=== PATIENT | female | born 1935 | race Caucasian/White ===

== ENCOUNTER 2016-12-02 12:57 | Emergency (ER) | payer MEDICARE ==
--- NOTE | 2016-12-02 13:30 | ER Document Report ---
ED Medical Screen (RME) - General Chief Complaint: Head Injury without LOC Stated Complaint: FALL/HEAD INJURY Time Seen by Provider: 12/02/16 13:29 Notes: Patient fell several days ago and at the left corner of her head on a sharp metal object. She states initially she had just left-sided headache but now she has diffuse headache. She is also been dizzy. He has had no vomiting. She states she has a CT scan scheduled for the of this month by her doctor but her doctor informed her to come to the ER today if the dizziness and pain were worse. TRAVEL OUTSIDE OF THE [place] IN LAST 30 DAYS: No - Related Data Allergies/Adverse Reactions: fentanyl Allergy (Verified 12/02/16 13:26) fluconazole [From Diflucan] Allergy (Verified 12/02/16 13:26) Hives mirabegron [From Myrbetriq] Allergy (Verified 12/02/16 13:26) Swelling of tongue morphine [From Avinza] Allergy (Verified 12/02/16 13:26) oxcarbazepine [From Trileptal] Allergy (Verified 12/02/16 13:26) simvastatin [From Zocor] Allergy (Verified 12/02/16 13:26) Uiupudq-Lzh-Dio Reductase Inhibitor Allergy (Verified 12/02/16 13:26) Sulfa (Sulfonamide Antibiotics) Allergy (Verified 12/02/16 13:26) Past Medical History Renal/ Medical History: Denies: Hx Peritoneal Dialysis Physical Exam - Vital signs Vitals: Temp Pulse Resp BP Pulse Ox 98.7 F 68 16 153/58 H 96 12/02/16 13:07 12/02/16 13:07 12/02/16 13:07 12/02/16 13:07 12/02/16 13:07 Course - Vital Signs Vital signs: Temp Pulse Resp BP Pulse Ox 98.7 F 68 16 153/58 H 96 12/02/16 13:07 12/02/16 13:07 12/02/16 13:07 12/02/16 13:07 12/02/16 13:07
--- NOTE | 2016-12-02 14:27 | RADIOLOGY REPORT (SQ) ---
EXAM DESCRIPTION: CT HEAD WITHOUT COMPLETED DATE/TIME: 12/02/2016 2:09 pm REASON FOR STUDY: fall/ dizzy COMPARISON: None. TECHNIQUE: Axial images acquired through the brain without intravenous contrast. Images reviewed wi th bone, brain and subdural windows. Images stored on PACS. All CT scanners at this facility use dose modulation, iterative reconstruction, and/or weight based d osing when appropriate to reduce radiation dose to as low as reasonably achievable (ALARA). [facility]: Dose Right [facility]: CareDose [facility]: Dose Right [facility]: Teradose 4D [facility]: [employer] RADIATION DOSE: Up-to-date CT equipment and radiation dose reduction techniques were employed. CTDIv ol: 63.6 mGy. DLP: 1163 mGy-cm. mGy. LIMITATIONS: None. FINDINGS: VENTRICLES: Normal size and contour. CEREBRUM: No masses. No hemorrhage. No midline shift. No evidence for acute infarction. Normal gra y/white matter differentiation. Bifrontal areas of low density in the white matter, from age-appropr iate small vessel disease. CEREBELLUM: No masses. No hemorrhage. No alteration of density. No evidence for acute infarction. EXTRAAXIAL SPACES: No fluid collections. No masses. ORBITS AND GLOBE: No intra- or extraconal masses. Normal contour of globe without masses. CALVARIUM: No fracture. PARANASAL SINUSES: No fluid or mucosal thickening. SOFT TISSUES: No mass or hematoma. OTHER: No other significant finding. IMPRESSION: ESSENTIALLY NORMAL BRAIN CT FOR AGE, WITHOUT CONTRAST. EVIDENCE OF ACUTE STROKE: NO. COMMENT: Quality ID # [id number]: Final reports with documentation of one or more dose reduction techniques (e.g., Automated exposure control, adjustment of the mA and/or kV according to patient size, use of iterative reconstruction technique) TECHNICAL DOCUMENTATION: JOB ID: [id number] [email or web address]- All Rights Reserved
[2016-12-02 14:38] LABS: ABSOLUTE EOSINOPHILS # (AUTO) 0.3 10^3/uL (0.0-0.6); ABSOLUTE LYMPHOCYTES (AUTO) 0.6 10^3/uL (0.5-4.7); ABSOLUTE MONOCYTES (AUTO) 0.4 10^3/uL (0.1-1.4); ABSOLUTE NEUT (AUTO) 4.6 10^3/uL (1.7-8.2); BASOPHILS % (AUTO) 0.8 % (0-2); EOSINOPHILS % (AUTO) 4.6 % (0-6); HEMATOCRIT 38.4 % (36.0-47.0); HEMOGLOBIN 13.2 g/dL (12.0-15.5); HGB HCT DIFFERENCE 1.2; LYMPHOCYTES % (AUTO) 10.9 % (13-45); MEAN CORPUSCULAR HEMOGLOBIN 30.9 pg (27.0-33.4); MEAN CORPUSCULAR HGB CONC 34.4 g/dL (32.0-36.0); MEAN CORPUSCULAR VOLUME 90 fl (80-97); MONOCYTES % (AUTO) 6.4 % (3-13); RED BLOOD COUNT 4.27 10^6/uL (3.72-5.28); RED CELL DISTRIBUTION WIDTH 14.5 % (11.5-14.0); SEGMENTED NEUTROPHILS % (AUTO) 77.3 % (42-78); WHITE BLOOD COUNT 5.9 10^3/uL (4.0-10.5)
[2016-12-02 14:47] LABS: APPEARANCE,URINE CLEAR; BILIRUBIN,URINE NEGATIVE (NEGATIVE); GLUCOSE, URINE NEGATIVE (NEGATIVE); KETONES,URINE NEGATIVE (NEGATIVE); LEUKOCYTE ESTERASE,URINE NEGATIVE (NEGATIVE); NITRITE,URINE NEGATIVE (NEGATIVE); PROTEIN,URINE NEGATIVE (NEGATIVE); URINE SPECIFIC GRAVITY 1.011; UROBILINOGEN,URINE NEGATIVE mg/dL (<2.0)
[2016-12-02 14:59] LABS: ALANINE AMINOTRANSFERASE 34 U/L (9-52); ALBUMIN 4.7 g/dL (3.5-5.0); ALKALINE PHOSPHATASE 46 U/L (38-126); ANION GAP 15 (5-19); ASPARTATE AMINO TRANSFERASE 30 U/L (14-36); BILIRUBIN,DIRECT 0.6 mg/dL (0.0-0.4); BILIRUBIN,TOTAL 2.1 mg/dL (0.2-1.3); BLOOD UREA NITROGEN 22 mg/dL (7-20); CALCIUM 9.9 mg/dL (8.4-10.2); CARBON DIOXIDE 25 mmol/L (22-30); CHLORIDE 102 mmol/L (98-107); CREATININE RESULT 1.18 mg/dL (0.52-1.25); GLUCOSE 93 mg/dL (75-110); POTASSIUM 4.5 mmol/L (3.6-5.0); SODIUM 141.5 mmol/L (137-145)
--- NOTE | 2016-12-02 15:25 | ER Document Report ---
ED Head/Face/Scalp Injury - General Chief Complaint: Head Injury without LOC Stated Complaint: FALL/HEAD INJURY Time Seen by Provider: 12/02/16 13:29 Notes: Patient says that she fell on the of this month, about 5 days ago, and hit the left posterior aspect of her head on a sharp corner of a piece of furniture. She did not have a loss of consciousness. She has been experiencing headache, dizziness, imbalance problems ever since this occurred. She does have a long-standing diagnosis of vertigo and has balance problems from that condition. She is on Antivert for that condition. Her headache is now all over her entire head. She has some skin tears, in particular the right forearm. Denies any nausea or vomiting. Patient saw her primary care provider who has ordered outpatient CT scan of her head and ultrasound of her carotid arteries, but they have not been done yet. Patient denies any chest pains or irregular heart rate. Denies any difficulty breathing or shortness of breath. Has not been febrile. 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 She has a pacemaker. TRAVEL OUTSIDE OF THE [place] IN LAST 30 DAYS: No - Related Data Allergies/Adverse Reactions: fentanyl Allergy (Verified 12/02/16 13:26) fluconazole [From Diflucan] Allergy (Verified 12/02/16 13:26) Hives mirabegron [From Myrbetriq] Allergy (Verified 12/02/16 13:26) Swelling of tongue morphine [From Avinza] Allergy (Verified 12/02/16 13:26) oxcarbazepine [From Trileptal] Allergy (Verified 12/02/16 13:26) simvastatin [From Zocor] Allergy (Verified 12/02/16 13:26) Sjijbli-Pwe-Wzu Reductase Inhibitor Allergy (Verified 12/02/16 13:26) Sulfa (Sulfonamide Antibiotics) Allergy (Verified 12/02/16 13:26) Past Medical History - Social History Smoking Status: Never Smoker Chew tobacco use (# tins/day): No Frequency of alcohol use: None Drug Abuse: None Family History: Reviewed & Not Pertinent Patient has suicidal ideation: No Patient has homicidal ideation: No - Past Medical History Cardiac Medical History: Reports: Hx Hypercholesterolemia, Hx Hypertension, Other - Has a pacemaker. Surgery for replacing aortic valve with a cow valve twice Denies: Hx Atrial Fibrillation Neurological Medical History: Reports: Other - Vertigo on Antivert. Endocrine Medical History: Reports: Hx Diabetes Mellitus Type 2 Past Surgical History: Reports: Other - Replacement of aortic valve twice Review of Systems - Review of Systems Notes: REVIEW OF SYSTEMS: CONSTITUTIONAL : Denies fever. EENT: Denies eye, ear, nose or mouth or throat pain or other symptoms. CARDIOVASCULAR: Denies chest pain. RESPIRATORY: Denies cough, chest congestion, or shortness of breath. GASTROINTESTINAL: Denies abdominal pain or nausea, vomiting, or diarrhea. GENITOURINARY: Denies difficulty or painful urinating, urinary frequency, blood in urine. MUSCULOSKELETAL: Denies back or neck pain. Denies joint pain or swelling. SKIN: Denies rash or skin lesions, except for a skin tear of the right wrist. NEUROLOGICAL: Denies LOC or altered mental status. Denies sensory loss or motor deficits. See HPI. ALL OTHER SYSTEMS REVIEWED AND NEGATIVE. Physical Exam - Vital signs Vitals: Temp Pulse Resp BP Pulse Ox 98.7 F 68 16 153/58 H 96 12/02/16 13:07 12/02/16 13:07 12/02/16 13:07 12/02/16 13:07 12/02/16 13:07 Interpretation: Normal - Notes Notes: PHYSICAL EXAMINATION: GENERAL: Well-appearing, in no acute distress. HEAD: Atraumatic, normocephalic. EYES: Pupils equal round and reactive to light, extraocular movements intact. No nystagmus present. ENT: oropharynx clear without exudates. Moist mucous membranes. NECK: Normal range of motion, supple. No carotid bruits heard. Palpated good and symmetric carotid artery pulsations. LUNGS: Breath sounds clear and equal bilaterally. HEART: Regular rate and rhythm without murmurs heard by me. ABDOMEN: Soft, nontender. No guarding or rebound. BACK: No tenderness throughout entire back. EXTREMITIES: Normal range of motion without pain. NEUROLOGICAL: Normal speech, normal gait, although slightly unsteady on her feet. Normal sensory, motor, and reflex exams. Awake, alert, and oriented x3. Cranial nerves normal. No nystagmus. PSYCH: Normal mood, normal affect. SKIN: Warm, dry, no rashes. Course - Vital Signs Vital signs: Temp Pulse Resp BP Pulse Ox 98.0 F 62 17 145/56 H 96 12/02/16 15:43 12/02/16 15:43 12/02/16 15:43 12/02/16 15:43 12/02/16 15:43 - Laboratory Result Diagrams: 12/02/16 13:57 12/02/16 13:57 Laboratory results interpreted by me: 12/02/16 12/02/16 12/02/16 13:57 13:57 13:57 RDW 14.5 H Plt Count 120 L Lymphocytes % 10.9 L BUN 22 H Est GFR ( Amer) 53 L Est GFR (Non-Af Amer) 44 L Total Bilirubin 2.1 H Direct Bilirubin 0.6 H Urine Ascorbic Acid 40 H - Diagnostic Test Radiology reviewed: Image reviewed, Reports reviewed - CT of the brain is normal for her age. No acute findings. No stroke evident. Discharge - Discharge Clinical Impression: Head injury due to trauma, Vertigo, Headache Condition: Stable Disposition: HOME, SELF-CARE Additional Instructions: HEAD INJURY PRECAUTIONS: At this point, there is no evidence that your head injury is serious. Observation is necessary, however. Take only clear liquids for the first few hours, unless told otherwise by the doctor. If no pain medication was prescribed, you may take acetaminophen according to the directions on the bottle. Do not take any medication that may alter your level of alertness (unless you've discussed it with the doctor first) . Limit activity for the first 24 hours. Bed rest is best. During the first 24 hours, check to see approximately every two to three hours that the patient is easily arousable, responds normally, and can perform common tasks such as walking without difficulty. Contact your doctor or go to the hospital if any of the following things occur: Persistent vomiting, difficulty in arousing the patient, worsening or continued headache, or failure to improve as expected. Head injuries can cause symptoms that persist for a few days or even a few weeks. CONTUSION: Your injury has resulted in a contusion -- a crushing of the deep tissues. No injury to important structures was detected during the physician's exam. Contusions vary in the amount of pain they cause, and in the length of time required for healing. Typically, the area will become bruised, and will remain painful to touch for two or three weeks. However, most patients are back to working and playing within a few days. After the initial period of rest and cold-packs, your symptoms (together with the doctor's recommendations) will determine how rapidly you can get back to full activity. Usually this means "do what feels okay, but don't do things that hurt." If re-examination was recommended, it's important to follow up as instructed. Call the doctor or return any time if pain increases, if swelling becomes severe, if you develop numbness or weakness in an injured extremity, or if any other alarming symptoms occur. HEADACHE: The physician does not feel that the headache you are experiencing has a serious underlying cause. Most headaches are due to emotional stress, with resultant muscle tension (tension headache). Occasionally, headaches are secondary to changes in the blood vessels of the scalp (vascular headache and migraine headache). Sometimes, a headache is the first symptom of another developing illness, such as a viral infection. You have no evidence of stroke, bleeding, meningitis, or other serious cause of your headache. The treatment of headaches varies with the severity and cause of the pain. Not all headaches need pain shots. In fact, there is evidence that using narcotics for headaches may make them worse in the long run. The physician will determine the therapy that's in your best interest. If you develop a fever, if the headache is different from any you've previously experienced, or if the headache progressively worsens, then call your physician at once or go to the emergency room. USE OF ACETAMINOPHEN (Tylenol): Acetaminophen may be taken for pain relief or fever control. It's much safer than aspirin, offering a wider range of "safe" dosages. It is safe during . Some brand names are Tylenol, Panadol, Datril, Anacin 3, Tempra, and Liquiprin. Acetaminophen can be repeated every four hours. The following are maximum recommended dosages: WEIGHT Dose Drops Elixir Chewable( 80mg) (LBS.) drprs=droppers tsp=teaspoon >89 pounds or adults 650 mg to 900 mg Acetaminophen can be repeated every four hours. Maximum dose not to exceed 4000 mg a day. However, I would recommend you take the Tylenol no more than 3 times a day for a maximum dose a day of 3000 mg. These maximum recommended dosages are slightly higher than the dosages written on the product container, but these dosages are very safe and below the toxic dosage for acetaminophen. DIZZINESS: Under normal circumstances, your sense of balance is controlled by a number of signals that your brain receives from several locations: Eyes. No matter what your position, visual signals help you determine where your body is in space and how it's moving. Sensory nerves. These are in your skin, muscles and joints. Sensory nerves send messages to your brain about body movements and positions. Inner ear. The organ of balance in your inner ear is the vestibular labyrinth. It includes loop-shaped structures (semicircular canals) that contain fluid and fine, hair-like sensors that monitor the rotation of your head. Near the semicircular canals are the utricle and saccule, which contain tiny particles called otoconia ([id number]). These particles are attached to sensors that help detect gravity and cupy-ptk-vjiqp motion. Good balance depends on at least two of these three sensory systems working well. For instance, closing your eyes while washing your hair in the shower doesn't mean you'll lose your balance. Signals from your inner ear and sensory nerves help keep you upright. However, if your central nervous system can't process signals from all of these locations, if the messages are contradictory, or if the sensory systems aren't functioning properly, you may experience loss of balance. Dizziness may have a number of potential causes. These may include: Vertigo Vertigo - the false sense of motion or spinning - is the most common symptom of dizziness. Sitting up or moving around may make it worse. Sometimes vertigo is severe enough to cause nausea and vomiting. Vertigo usually results from a problem with the nerves and the structures of the balance mechanism in your inner ear (vestibular system), which sense movement and changes in your head position. Abnormal rhythmic eye movements ( nystagmus) almost always accompany vertigo. Causes of vertigo may include: Benign paroxysmal positional vertigo (BPPV). BPPV involves intense, brief episodes of vertigo associated with a change in the position of your head, often when you turn over in bed or sit up in the morning. It occurs when normal calcium carbonate crystals (otoconia) break loose and fall into the wrong part of the canals in your inner ear. When these particles shift, they stimulate sensors in your ear, producing an episode of vertigo. Doctors don't know what causes BPPV, but it may be a natural result of aging. Trauma to your head also may lead to BPPV. Inflammation in the inner ear. Signs and symptoms of inflammation of the inner ear (acute vestibular neuronitis or labyrinthitis) include sudden, intense vertigo that may persist for several days, with nausea and vomiting. It can be incapacitating, requiring bed rest to minimize the signs and symptoms. Fortunately, vestibular neuronitis generally subsides and clears up on its own. Recovery time may be shorter with vestibular rehabilitation exercises. Although the cause of this condition is unknown, it may be a viral infection. Meniere's disease. This disease involves the excessive buildup of fluid in your inner ear. It may affect adults at any age and is characterized by sudden episodes of vertigo lasting 30 minutes to an hour or longer. Other signs and symptoms include the feeling of fullness in your ear, buzzing or ringing in your ear (tinnitus), and fluctuating hearing loss. The cause of Meniere's disease is unknown. Vestibular migraine. People who experience a vestibular migraine are very sensitive to motion. Dizziness and vertigo caused by a vestibular migraine may be triggered by turning your head quickly, being in a crowded or confusing place , driving or riding in a vehicle, or even watching movement on TV. A vestibular migraine may cause feelings of imbalance or unsteadiness, hearing loss, "muffled " hearing, or ringing in your ears (tinnitus). For most people with a vestibular migraine, vertigo doesn't necessarily happen at the same time as the headache. Instead, typical migraine triggers may lead to vertigo without an actual migraine. Attacks of migrainous vertigo can last from a few minutes to several days. Acoustic neuroma. An acoustic neuroma (schwannoma) is a noncancerous (benign ) growth on the acoustic nerve, which connects the inner ear to your brain. Signs and symptoms of an acoustic neuroma may include dizziness, loss of balance , hearing loss and tinnitus. Rapid changes in motion. Riding on roller coasters or in boats, cars or even airplanes may on occasion make you dizzy. Other causes. Rarely, vertigo can be a symptom of a more serious neurological problem such as a stroke, brain hemorrhage or multiple sclerosis. Loss of balance (disequilibrium) Disequilibrium is the loss of balance or the feeling of unsteadiness when you walk. Causes may include: Inner ear (vestibular) problems. Abnormalities with your inner ear can cause you to feel like you are floating, have a heavy head or are unsteady in the dark. Sensory disorders. Failing vision and nerve damage in your legs (peripheral neuropathy) are common in older adultsand may result in difficulty maintaining your balance. Joint and muscle problems. Muscle weakness and osteoarthritis - the type of arthritis that involves wear and tear of your joints - can contribute to loss of balance when it involves your weight-bearing joints. Medications. Loss of balance can be a side effect of certain medications, such as anti-seizure drugs, sedatives and tranquilizers. Concussion You have suffered a concussion -- a temporary loss of certain brain functions due to a mild brain injury. The recovery is usually rapid and complete. The temporary problems occurring with a concussion can include loss of consciousness, dizziness, nausea, vomiting, and confusion. Repeat concussions can cause brain damage. In the future, avoid activities that will cause a blow to your head. Wear a helmet for sports such as snowboarding, biking, or skating. It's important that someone be with you for the first 24 hours. During this time, do not exercise or drive a vehicle. Do not take any pain medication stronger than acetaminophen unless prescribed by the physician. Any significant changes should be reported immediately to the physician. Signs of a problem may include: (1) Mental confusion (2) Incoordination or staggering (3) Repeated or forceful vomiting (4) Clear or bloody drainage from ear, mouth, or nose (5) Severe headache, not relieved by acetaminophen or prescribed pain medication (6) Failure to improve in 24 hours NORMAL EXAM AND WORKUP: At this time, your examination and workup show no significant abnormality. No significant abnormal physical findings were noted. All laboratory, EKG, and imaging (x-ray, CT scans, ultrasound) studies that were ordered show no significant abnormality. Although your examination and all studies that were ordered showed no significant abnormal finding, there are no examinations and no studies that are 100% accurate. There is always the possibility that some abnormality could exist and not be detected with physical examination or within the limits and capabilities of laboratory and other studies. You should return or follow up as you were instructed on your visit today for further evaluation if your symptoms do not resolve. MECLIZINE: You are to take meclizine (Antivert) for control of symptoms. This is a drug of the antihistamine family which is useful for controlling nausea, dizziness, and motion sickness. Meclizine is usually taken three times a day, as needed. It's more effective at preventing symptoms than at relieving severe symptoms once they occur. It can be taken BEFORE activities which are likely to cause dizziness or nausea. Common side effects of this medicine are drowsiness and dry mouth. You should use caution in driving or operating machinery while taking this medication. In particular, you should not drive long distances or drive at night while taking this medicine. Meclizine should not be combined with alcohol , narcotics, or sedative medications without consulting your physician. FOLLOW-UP CARE: If you have been referred to a physician for follow-up care, call the physician s office for an appointment as you were instructed or within the next two days. If you experience worsening or a significant change in your symptoms, notify the physician immediately or return to the Emergency Department at any time for re-evaluation. You should not be driving a motor vehicle so long as you are still having any of the symptoms you now have such as headache, dizziness, problems with balance , vision changes, etc. Go ahead and get the ultrasound of your carotid arteries done as scheduled. You do not need to repeat your CT scan as is scheduled. See your primary care provider, Dr. Wade for follow-up. Referrals: DIXIE ORONA MD [Primary Care Provider] - Follow up as needed
[2016-12-02 15:58] VITALS: BP 145/56
== END 2016-12-02 15:46 | disposition home or self-care (01) ==
LOC: ER 12:57
DX: S09.90XA Unspecified injury of head, initial encounter (principal); S51.811A Laceration without foreign body of right forearm, initial encounter; R42 Dizziness and giddiness; R51 Headache; W22.03XA Walked into furniture, initial encounter; E11.9 Type 2 diabetes mellitus without complications; I10 Essential (primary) hypertension; E78.00 Pure hypercholesterolemia, unspecified; Z88.6 Allergy status to analgesic agent; Z95.2 Presence of prosthetic heart valve; Z88.2 Allergy status to sulfonamides; Z95.0 Presence of cardiac pacemaker
CPT/HCPCS: 36415; 70450; 80053; 81001; 85025; 99284

== ENCOUNTER 2017-03-01 20:27 | Emergency (ER) | payer MEDICARE ==
[2017-03-01 20:56] VITALS: BP 139/67
--- NOTE | 2017-03-01 23:56 | ER Document Report ---
ED Medical Screen (RME) - General Chief Complaint: Back Injury Stated Complaint: FALL/BACK PAIN/RIB PAIN Time Seen by Provider: 03/01/17 23:54 Notes: 81-year-old female, chief complaint of falling this morning, states she landed on her lower back, reports sharp pain in the lower back, tried a lidocaine patch , pain continued. She feels like pain has worsened. She denies new incontinence or inability to urinate, denies new numbness. Denies head injury or any other areas of injury. TRAVEL OUTSIDE OF THE [place] IN LAST 30 DAYS: No - Related Data Allergies/Adverse Reactions: fentanyl Allergy (Verified 12/02/16 13:26) fluconazole [From Diflucan] Allergy (Verified 12/02/16 13:26) Hives mirabegron [From Myrbetriq] Allergy (Verified 12/02/16 13:26) Swelling of tongue morphine [From Avinza] Allergy (Verified 12/02/16 13:26) oxcarbazepine [From Trileptal] Allergy (Verified 12/02/16 13:26) simvastatin [From Zocor] Allergy (Verified 12/02/16 13:26) Fndepbp-Fdt-Tvs Reductase Inhibitor Allergy (Verified 12/02/16 13:26) Sulfa (Sulfonamide Antibiotics) Allergy (Verified 12/02/16 13:26) Past Medical History - Past Medical History Cardiac Medical History: Reports: Hx Hypercholesterolemia, Hx Hypertension Denies: Hx Atrial Fibrillation Endocrine Medical History: Reports: Hx Diabetes Mellitus Type 2 Renal/ Medical History: Denies: Hx Peritoneal Dialysis Past Surgical History: Reports: Other - Replacement of aortic valve twice - Immunizations History of Influenza Vaccine for 11/2016 - 04/2017 Season: Yes Physical Exam - Vital signs Vitals: Temp Pulse Resp BP Pulse Ox 98.1 F 72 14 139/67 H 95 03/01/17 20:55 03/01/17 20:55 03/01/17 20:55 03/01/17 20:55 03/01/17 20:55 - General General appearance: Appears well In distress: None - Back Back: Tender - Tender generally around the upper to mid lumbar spine, no traumatic findings, normal back exam otherwise, normal distal sensation, normal capillary refill Course - Vital Signs Vital signs: Temp Pulse Resp BP Pulse Ox 98.1 F 72 14 139/67 H 95 01/22/18 20:55 03/01/17 20:55 03/01/17 20:55 03/01/17 20:55 03/01/17 20:55
--- NOTE | 2017-03-02 00:53 | RADIOLOGY REPORT (SQ) ---
EXAM DESCRIPTION: CT LUMBAR SPINE WITHOUT CLINICAL HISTORY: fall, pain COMPARISON: None available TECHNIQUE: Axial CT of the lumbar spine obtained without contrast. FINDINGS: 5 nonrib-bearing lumbar vertebrae. 23 degrees levoconvex scoliosis of the thoracolumbar spine. Osteopenia. No cortical step-off identified. Vertebral body height appears preserved. Prior posterior laminectomies at L4 and L5. Prevertebral soft tissues are unremarkable. Multilevel moderate to severe loss of intervertebral disc height with endplate spondylosis and uncovertebral spurring. Multilevel moderate osseous neural foraminal narrowing. Facet arthropathy. Aortoiliac atherosclerosis. Postoperative changes of the visualized colon. Atrophy of the kidneys. DLP: 1728.06 mGy-cm IMPRESSION: 1. No acute fracture of the lumbar spine by CT criteria. Given degree of osteopenia, if the patient continues to have pain MRI may be helpful. 2. Severe multilevel degenerative change of the lumbar spine as well as 23 degrees levoconvex scoliosis. This exam was performed according to our departmental dose-optimization program, which includes automated exposure control, adjustment of the mA and/or kV according to patient size and/or use of iterative reconstruction technique.
[2017-03-02] MEDS ORDERED: HYDROCODONE/ACETAMINOPHEN 5-325 MG (6 TAB/ER DISP) PO PRN (01:54)
--- NOTE | 2017-03-02 01:56 | ER Document Report ---
ED Fall - General Chief Complaint: Back Injury Stated Complaint: FALL/BACK PAIN/RIB PAIN Time Seen by Provider: 03/01/17 23:54 Notes: 81-year-old female, chief complaint of falling this morning, states she landed on her lower back, reports sharp pain in the lower back, tried a lidocaine patch , pain continued. She feels like pain has worsened. She denies new incontinence or inability to urinate, denies new numbness. Denies head injury or any other areas of injury. TRAVEL OUTSIDE OF THE [place] IN LAST 30 DAYS: No - Related data Allergies/Adverse Reactions: fentanyl Allergy (Verified 12/02/16 13:26) fluconazole [From Diflucan] Allergy (Verified 12/02/16 13:26) Hives mirabegron [From Myrbetriq] Allergy (Verified 12/02/16 13:26) Swelling of tongue morphine [From Avinza] Allergy (Verified 12/02/16 13:26) oxcarbazepine [From Trileptal] Allergy (Verified 12/02/16 13:26) simvastatin [From Zocor] Allergy (Verified 12/02/16 13:26) Bdgeygy-Egm-Ypg Reductase Inhibitor Allergy (Verified 12/02/16 13:26) Sulfa (Sulfonamide Antibiotics) Allergy (Verified 12/02/16 13:26) Past Medical History - General Information source: Patient - Social History Smoking Status: Never Smoker Frequency of alcohol use: None Drug Abuse: None Lives with: Family Family History: Reviewed & Not Pertinent Patient has suicidal ideation: No Patient has homicidal ideation: No - Past Medical History Cardiac Medical History: Reports: Hx Hypercholesterolemia, Hx Hypertension Denies: Hx Atrial Fibrillation Endocrine Medical History: Reports: Hx Diabetes Mellitus Type 2 Renal/ Medical History: Denies: Hx Peritoneal Dialysis Past Surgical History: Reports: Other - Replacement of aortic valve twice Review of Systems - Review of Systems Constitutional: No symptoms reported EENT: No symptoms reported Cardiovascular: No symptoms reported Respiratory: No symptoms reported Gastrointestinal: No symptoms reported Genitourinary: No symptoms reported Female Genitourinary: No symptoms reported Musculoskeletal: See HPI Skin: No symptoms reported Hematologic/Lymphatic: No symptoms reported Neurological/Psychological: No symptoms reported Physical Exam - Vital signs Vitals: Temp Pulse Resp BP Pulse Ox 98.1 F 72 14 139/67 H 95 03/01/17 20:55 03/01/17 20:55 03/01/17 20:55 03/01/17 20:55 03/01/17 20:55 Interpretation: Normal - General General appearance: Appears well, Alert - HEENT Head: Normocephalic, Atraumatic Eyes: Normal Pupils: PERRL - Respiratory Respiratory status: No respiratory distress Chest status: Nontender Breath sounds: Normal Chest palpation: Normal - Cardiovascular Rhythm: Regular Heart sounds: Normal auscultation Murmur: No - Abdominal Inspection: Normal Distension: No distension Bowel sounds: Normal Tenderness: Nontender Organomegaly: No organomegaly - Back Back: Tender - Tender generally in the lumbar area both paraspinal and midline. No severe tenderness. Full range of motion of all extremities, no saddle anesthesia, no ecchymosis or signs of trauma over the back - Extremities General upper extremity: Normal inspection, Nontender, Normal color, Normal ROM , Normal temperature General lower extremity: Normal inspection, Nontender, Normal color, Normal ROM , Normal temperature, Normal weight bearing. No: Dante's sign - Neurological Neuro grossly intact: Yes Cognition: Normal Orientation: AAOx4 Oral Coma Scale Eye Opening: Spontaneous Yanci Coma Scale Verbal: Oriented Oral Coma Scale Motor: Obeys Commands Oral Coma Scale Total: 15 Speech: Normal Motor strength normal: LUE, RUE, LLE, RLE Sensory: Normal - Psychological Associated symptoms: Normal affect, Normal mood - Skin Skin Temperature: Warm Skin Moisture: Dry Skin Color: Normal Course - Re-evaluation Re-evalutation: Patient alert and well-appearing. She states that she came because she wants to get patches like her daughter as (lidocaine patches). CAT scan imaging of the lumbar spine shows no obvious acute abnormality. Multiple degenerative changes. No neurological deficits. No signs of trauma over her back. No distress. Discussed results with patient and daughter, discussed follow-up and return precautions, they state understanding and agreement. - Vital Signs Vital signs: Temp Pulse Resp BP Pulse Ox 98.1 F 72 14 139/67 H 95 03/01/17 20:55 03/01/17 20:55 03/01/17 20:55 03/01/17 20:55 03/01/17 20:55 Discharge - Discharge Clinical Impression: Fall Qualifiers: Encounter type: initial encounter Qualified Code(s): W19.XXXA - Unspecified fall, initial encounter Lower back pain Qualifiers: Chronicity: acute Back pain laterality: bilateral Sciatica presence: without sciatica Qualified Code(s): M54.5 - Low back pain Condition: Stable Disposition: HOME, SELF-CARE Additional Instructions: No fracture, dislocation, or new finding is seen on scan. You have degenerative breakdown, scoliosis, arthritis in your back.3 Use patches if needed, use provided medications tonight if needed, take over-the -counter MiraLAX to avoid constipation. Follow-up with primary care for additional management. Return for any concerning or worsening symptoms including new numbness, inability to control your bowels or bladder more than usual, severe pain, or any other concerning symptoms. Prescriptions: Lidocaine [Lidoderm 5% (700 mg) Transdermal Patch] 1 patch TP DAILY #30 adh..patch Referrals: DIXIE ORONA MD [Primary Care Provider] - Follow up as needed
== END 2017-03-02 01:40 | disposition home or self-care (01) ==
LOC: ER 20:27
DX: M54.5 Low back pain (principal); W19.XXXA Unspecified fall, initial encounter; Y93.89 Activity, other specified; M47.9 Spondylosis, unspecified; I10 Essential (primary) hypertension; E11.9 Type 2 diabetes mellitus without complications; Z88.5 Allergy status to narcotic agent; Z88.3 Allergy status to other anti-infective agents; Z88.2 Allergy status to sulfonamides; Z88.8 Allergy status to other drugs, medicaments and biological substances; Z95.2 Presence of prosthetic heart valve
CPT/HCPCS: 99283; 72131; A9270

== ENCOUNTER → 2017-04-01 | Outpatient (CLI) | payer MEDICARE ==
--- NOTE | 2017-04-01 18:42 | RADIOLOGY REPORT (SQ) ---
EXAM DESCRIPTION: CT HEAD WITHOUT COMPLETED DATE/TIME: 04/01/2017 6:27 pm REASON FOR STUDY: Unspecified injury of head, initial encounter, Dizziness and giddiness S09.90XA U NSPECIFIED INJURY OF HEAD, INITIAL ENCOUNTER COMPARISON: 12/02/2016. TECHNIQUE: Axial images acquired through the brain without intravenous contrast. Images reviewed wi th bone, brain and subdural windows. Images stored on PACS. All CT scanners at this facility use dose modulation, iterative reconstruction, and/or weight based d osing when appropriate to reduce radiation dose to as low as reasonably achievable (ALARA). [facility]: Dose Right [facility]: CareDose [facility]: Dose Right [facility]: Teradose 4D [facility]: [employer] RADIATION DOSE: CT Rad equipment meets quality standard of care and radiation dose reduction techniq ues were employed. CTDIvol: 62.3 mGy. DLP: 1163 mGy-cm. mGy. LIMITATIONS: None. FINDINGS: VENTRICLES: Prominent. CEREBRUM: No masses. No hemorrhage. No midline shift. Areas of low density in the white matter mos t likely due to chronic micro-vascular ischemic change. No evidence for acute infarction. CEREBELLUM: No masses. No hemorrhage. No alteration of density. No evidence for acute infarction. EXTRAAXIAL SPACES: Mild age-related involutional change. No fluid collections. No masses. ORBITS AND GLOBE: No intra- or extraconal masses. Normal contour of globe without masses. CALVARIUM: No fracture. PARANASAL SINUSES: No fluid or mucosal thickening. SOFT TISSUES: No mass or hematoma. OTHER: No other significant finding. IMPRESSION: MILD CHRONIC CHANGES OF ATROPHY AND MICROVASCULAR ISCHEMIA. NO ACUTE PROCESS. EVIDENCE OF ACUTE STROKE: NO. TECHNICAL DOCUMENTATION: JOB ID: [id number] Quality ID # [id number]: Final reports with documentation of one or more dose reduction techniques (e.g., Au tomated exposure control, adjustment of the mA and/or kV according to patient size, use of iterative reconstruction technique) 2010 [employer]- All Rights Reserved
== END ==
LOC: RAD 17:45
PROVIDERS: ATTEND Internal Medicine
DX: S09.90XA Unspecified injury of head, initial encounter (principal); X58.XXXA Exposure to other specified factors, initial encounter; Y93.9 Activity, unspecified; Y92.9 Unspecified place or not applicable; Y99.9 Unspecified external cause status; R42 Dizziness and giddiness
CPT/HCPCS: 70450

== ENCOUNTER 2018-05-28 12:39 | Emergency (ER) | payer MEDICARE ==
--- NOTE | 2018-05-28 13:32 | ER Document Report ---
ED Medical Screen (RME) - General Chief Complaint: Breathing Difficulty Stated Complaint: DIFFICULTY BREATHING Time Seen by Provider: 05/28/18 13:28 Primary Care Provider: DIXIE ORONA MD [Primary Care Provider] - Follow up as needed Mode of Arrival: Ambulatory Information source: Patient, Relative Notes: 82-year-old female presented to ED complaint of severe pain when breathing bilateral lower ribs and upper abdomen. She also has bilateral flank pain. She states she has had this pain since Wednesday. She states is not getting any better. She states she does have a history of pleural effusion A. fib aortic valve repair colon resection due to an abscess that was wrapped around the left ovary and tube and she had a left ovary and tube removed. She is here with her daughter. She states the pain feels almost like when she had the pleural effusion before. She states she does occasionally drink but does not smoke or use any kind of drugs. She lives with her daughter. Patient does have bilateral lower rib and flank tenderness. Tenderness goes all the way down to bilateral groin I have greeted and performed a rapid initial assessment of this patient. A comprehensive ED assessment and evaluation of the patient, analysis of test results and completion of medical decision making process will be conducted by an additional ED providers. TRAVEL OUTSIDE OF THE [place] IN LAST 30 DAYS: No - Related Data Allergies/Adverse Reactions: fentanyl Allergy (Verified 12/02/16 13:26) fluconazole [From Diflucan] Allergy (Verified 12/02/16 13:26) Hives mirabegron [From Myrbetriq] Allergy (Verified 12/02/16 13:26) Swelling of tongue morphine [From Avinza] Allergy (Verified 12/02/16 13:26) oxcarbazepine [From Trileptal] Allergy (Verified 12/02/16 13:26) simvastatin [From Zocor] Allergy (Verified 12/02/16 13:26) Dopqzqe-Fok-Gok Reductase Inhibitor Allergy (Verified 12/02/16 13:26) Sulfa (Sulfonamide Antibiotics) Allergy (Verified 12/02/16 13:26) Past Medical History - Past Medical History Cardiac Medical History: Reports: Hx Hypercholesterolemia, Hx Hypertension Denies: Hx Atrial Fibrillation Endocrine Medical History: Reports: Hx Diabetes Mellitus Type 2 Renal/ Medical History: Denies: Hx Peritoneal Dialysis Past Surgical History: Reports: Other - Replacement of aortic valve twice - Immunizations History of Influenza Vaccine for 11/2016 - 04/2017 Season: Yes Physical Exam - Vital signs Vitals: Temp Pulse Resp BP Pulse Ox 97.8 F 60 22 H 132/64 H 97 05/28/18 12:53 05/28/18 12:53 05/28/18 12:53 05/28/18 12:53 05/28/18 12:53 Course - Vital Signs Vital signs: Temp Pulse Resp BP Pulse Ox 97.8 F 60 22 H 132/64 H 97 05/28/18 12:53 05/28/18 12:53 05/28/18 12:53 05/28/18 12:53 05/28/18 12:53 Doctor's Discharge - Discharge Referrals: DIXIE ORONA MD [Primary Care Provider] - Follow up as needed
[2018-05-28 14:14] LABS: APPEARANCE,URINE SLIGHTLY-CLOUDY; BILIRUBIN,URINE NEGATIVE (NEGATIVE); COLOR,URINE YELLOW; GLUCOSE, URINE NEGATIVE (NEGATIVE); KETONES,URINE NEGATIVE (NEGATIVE); LEUKOCYTE ESTERASE,URINE NEGATIVE (NEGATIVE); NITRITE,URINE NEGATIVE (NEGATIVE); PROTEIN,URINE NEGATIVE (NEGATIVE); URINE SPECIFIC GRAVITY 1.014; UROBILINOGEN,URINE NEGATIVE mg/dL (<2.0)
--- NOTE | 2018-05-28 14:22 | RADIOLOGY REPORT (SQ) ---
EXAM DESCRIPTION: CHEST 2 VIEWS COMPLETED DATE/TIME: 05/28/2018 2:10 pm REASON FOR STUDY: lower chest pain bilateral hx plueral effusion COMPARISON: None EXAM PARAMETERS: NUMBER OF VIEWS: two views TECHNIQUE: Digital Frontal and Lateral radiographic views of the chest acquired. RADIATION DOSE: NA LIMITATIONS: none FINDINGS: LUNGS AND PLEURA: Chronic scarring of the right pleural base. No acute finding in the mary gs. MEDIASTINUM AND HILAR STRUCTURES: No masses or contour abnormalities. HEART AND VASCULAR STRUCTURES: Heart normal size. No evidence for failure. BONES: Sternal wires. HARDWARE: Cardiac pacemaker. OTHER: No other significant finding. IMPRESSION: NO ACUTE RADIOGRAPHIC FINDING IN THE CHEST. TECHNICAL DOCUMENTATION: JOB ID: [id number] [employer]- All Rights Reserved Reading location - IP/workstation name: [email or web address]
--- NOTE | 2018-05-28 14:25 | RADIOLOGY REPORT (SQ) ---
EXAM DESCRIPTION: CT ABD/PELVIS NO ORAL OR IV COMPLETED DATE/TIME: 05/28/2018 2:02 pm REASON FOR STUDY: bilateral flankpain COMPARISON: None. TECHNIQUE: CT scan of the abdomen and pelvis performed without intravenous or oral contrast. Images reviewed with lung, soft tissue, and bone windows. Reconstructed coronal and sagittal MPR images revi ewed. All images stored on PACS. All CT scanners at this facility use dose modulation, iterative reconstruction, and/or weight based d osing when appropriate to reduce radiation dose to as low as reasonably achievable (ALARA). [facility]: Dose Right [facility]: CareDose [facility]: Dose Right [facility]: Teradose 4D [facility]: [employer] RADIATION DOSE: CT Rad equipment meets quality standard of care and radiation dose reduction techniq ues were employed. CTDIvol: 9.9 mGy. DLP: 483 mGy-cm.mGy. LIMITATIONS: None. FINDINGS: LOWER CHEST: No significant findings. No nodules or infiltrates. NON-CONTRASTED LIVER, SPLEEN, ADRENALS: Evaluation limited by lack of IV contrast. No identified sign ificant masses. PANCREAS: No masses. No peripancreatic inflammatory changes. GALLBLADDER: Surgically absent. RIGHT KIDNEY AND URETER: No suspicious masses. Assessment limited by lack of IV contrast. No signif icant calcifications. No hydronephrosis or hydroureter. LEFT KIDNEY AND URETER: No suspicious masses. Assessment limited by lack of IV contrast. No signifi cant calcifications. No hydronephrosis or hydroureter. AORTA AND RETROPERITONEUM: No aneurysm. No retroperitoneal masses or adenopathy. BOWEL AND PERITONEAL CAVITY: No obvious masses or inflammatory changes. No free fluid. Diverticulosi s. APPENDIX: Not visualized. PELVIS, BLADDER, AND ABDOMINAL WALL:No abnormal masses. No free fluid. Bladder normal. BONES: Marked degenerative changes. OTHER: No other significant finding. IMPRESSION: NO SIGNIFICANT OR ACUTE PROCESS IN THE ABDOMEN OR PELVIS. COMMENT: Quality ID # 436: Final reports with documentation of one or more dose reduction techniques (e.g., Automated exposure control, adjustment of the mA and/or kV according to patient size, use of iterative reconstruction technique) TECHNICAL DOCUMENTATION: JOB ID: [id number] [employer]- All Rights Reserved Reading location - IP/workstation name: [email or web address]
[2018-05-28 14:37] LABS: ABSOLUTE EOSINOPHILS # (AUTO) 0.3 10^3/uL (0.0-0.6); ABSOLUTE MONOCYTES (AUTO) 0.5 10^3/uL (0.1-1.4); ABSOLUTE NEUT (AUTO) 5.1 10^3/uL (1.7-8.2); BASOPHILS % (AUTO) 0.5 % (0-2); EOSINOPHILS % (AUTO) 3.6 % (0-6); HEMATOCRIT 40.7 % (36.0-47.0); HEMOGLOBIN 14.1 g/dL (12.0-15.5); MEAN CORPUSCULAR HEMOGLOBIN 31.3 pg (27.0-33.4); MEAN CORPUSCULAR HGB CONC 34.8 g/dL (32.0-36.0); MEAN CORPUSCULAR VOLUME 90 fl (80-97); MONOCYTES % (AUTO) 7.1 % (3-13); PLATELET COUNT 124 10^3/uL (150-450); RED BLOOD COUNT 4.51 10^6/uL (3.72-5.28); RED CELL DISTRIBUTION WIDTH 13.8 % (11.5-14.0); SEGMENTED NEUTROPHILS % (AUTO) 73.8 % (42-78); TOTAL CELLS COUNTED % (AUTO) 100 %; WHITE BLOOD COUNT 6.9 10^3/uL (4.0-10.5)
[2018-05-28 14:41] LABS: BLOOD UREA NITROGEN 36 mg/dL (7-20); CALCIUM 9.8 mg/dL (8.4-10.2); GLUCOSE 81 mg/dL (75-110)
[2018-05-28 14:42] LABS: ALANINE AMINOTRANSFERASE 26 U/L (9-52); ALBUMIN 4.5 g/dL (3.5-5.0); ALKALINE PHOSPHATASE 37 U/L (38-126); ANION GAP 12 (5-19); ASPARTATE AMINO TRANSFERASE 36 U/L (14-36); BILIRUBIN,DIRECT 0.4 mg/dL (0.0-0.4); BILIRUBIN,TOTAL 1.5 mg/dL (0.2-1.3); CARBON DIOXIDE 25 mmol/L (22-30); CHLORIDE 103 mmol/L (98-107); POTASSIUM 4.3 mmol/L (3.6-5.0); SODIUM 139.5 mmol/L (137-145); TOTAL PROTEIN 8.3 g/dL (6.3-8.2)
[2018-05-28] MEDS ORDERED: NORMAL SALINE 1000 ML 1,000 ML IV ONE (15:24)
--- NOTE | 2018-05-28 15:39 | ER Document Report ---
ED General - General Chief Complaint: Breathing Difficulty Stated Complaint: DIFFICULTY BREATHING Time Seen by Provider: 05/28/18 13:28 Primary Care Provider: DIXIE ORONA MD [Primary Care Provider] - Follow up as needed Mode of Arrival: Ambulatory TRAVEL OUTSIDE OF THE [place] IN LAST 30 DAYS: No - HPI Notes: Patient is an 82-year-old female with a history of pleural effusion, A. fib, aortic valve repair, colon resection, pacemaker, hypertension, diet-controlled diabetes, obesity who presents to the emergency department complaining of bilate ral rib pain when she takes deep breaths and pushes on her ribs. This is been ongoing for the past couple weeks, but increasing over the last week. Patient states that she did have a semi-productive cough about a week ago and was given an inhaler to use by her family doctor, but she started losing her voice at that time and family attributed to the inhaler so they stopped using it. Patient states that she started getting her voice back over the past couple days. She is still eating and drinking without difficulty. She is able to ambulate without any dyspnea on exertion or worsening symptoms. She is urinating normally and having normal bowel movements. No history of CHF, CAD, MT. Denies any prolonged immobilization, distance travel, recent surgery/trauma, personal cancer history, hormone use, smoking, or previous DVT/PE. Denies any headache, fever, neck pain, URI, sore throat, palpitations, syncope, cough, shortness of breath, wheeze, dyspnea, abdominal pain, nausea/vomiting/diarrhea, urinary retention, dysuria, hematuria, back pain, or rash. Pt has not had any acute abd pain and states that the pain she has in her lower abd has been there for years and remains unchanged. - Related Data Allergies/Adverse Reactions: fentanyl Allergy (Verified 05/28/18 14:41) fluconazole [From Diflucan] Allergy (Verified 05/28/18 14:41) Hives mirabegron [From Myrbetriq] Allergy (Verified 05/28/18 14:41) Swelling of tongue morphine [From Avinza] Allergy (Verified 05/28/18 14:41) oxcarbazepine [From Trileptal] Allergy (Verified 05/28/18 14:41) simvastatin [From Zocor] Allergy (Verified 05/28/18 14:41) Wxhrkkb-Evq-Ocs Reductase Inhibitor Allergy (Verified 05/28/18 14:41) Sulfa (Sulfonamide Antibiotics) Allergy (Verified 05/28/18 14:41) Past Medical History - General Information source: Patient, Relative - Social History Smoking Status: Former Smoker - 2 years 30+ years ago Family History: Reviewed & Not Pertinent Patient has suicidal ideation: No Patient has homicidal ideation: No - Past Medical History Cardiac Medical History: Reports: Hx Hypercholesterolemia, Hx Hypertension Denies: Hx Atrial Fibrillation Endocrine Medical History: Reports: Hx Diabetes Mellitus Type 2 Renal/ Medical History: Denies: Hx Peritoneal Dialysis Past Surgical History: Reports: Other - Replacement of aortic valve twice Review of Systems - Review of Systems -: Yes All other systems reviewed and negative Physical Exam - Vital signs Vitals: Temp Pulse Resp BP Pulse Ox 97.8 F 60 22 H 132/64 H 97 05/28/18 12:53 05/28/18 12:53 05/28/18 12:53 05/28/18 12:53 05/28/18 12:53 - Notes Notes: PHYSICAL EXAMINATION: GENERAL: Well-appearing, well-nourished and in no acute distress. HEAD: Atraumatic, normocephalic. EYES: Pupils equal round and reactive to light, extraocular movements intact, sclera anicteric, conjunctiva are normal. ENT: Nares patent and without discharge. oropharynx clear without exudates. No tonsilar hypertrophy or erythema. Moist mucous membranes. NECK: Normal range of motion, supple without lymphadenopathy Chest: + reproducible tenderness to palpation of the ribs laterally and bilaterally, reproduces pain described. LUNGS: Breath sounds clear to auscultation bilaterally and equal. No wheezes rales or rhonchi. HEART: Regular rate and rhythm without murmurs, rubs, gallops. ABDOMEN: Soft, nontender, nondistended abdomen. No guarding, no rebound. No masses appreciated. Normal bowel sounds present. No CVA tenderness bilaterally. Musculoskeletal: FROM to passive/active. Strength 5+/5. Dante neg. No asymmetry to LE's. Extremities: No cyanosis, clubbing, or edema b/l. Peripheral pulses 2+. Capillary refill less than 3 seconds. NEUROLOGICAL: Normal speech, normal gait. PSYCH: Normal mood, normal affect. SKIN: Warm, Dry, normal turgor, no rashes or lesions noted. Course - Re-evaluation Re-evalutation: 05/28/18 17:49 Patient is an afebrile, well-hydrated 82-year-old female who presents to the ED with pleuritic chest pain, unspecified. Vitals are acceptable without any significant tachycardia, tachypnea, or hypoxia. PE is otherwise unremarkable aside from the reproducible lateral rib/chest wall tenderness. Patient is nontoxic-appearing and is tolerating p.o. without any difficulties. CBC, CMP, EKG/cardiac enzymes 2, BNP, chest x-ray, CT abd/pelv (ordered at triage) are all acceptable without concerning pathology. Pt is otherwise low risk for DVT/PE based on her current H&P so d-dimer was ordered. D-dimer elevated. Pt's creatinine and GFR make it too risky to obtain a CTA of the chest at this time. I spoke with the radiologist as well as Dr. Cunningham. Radio does not want a v/q scan due to quality and recommend lovenox and recheck with CTA in [address] Cunningham agrees with this plan. Patient does not have any sternal chest pain, dyspnea, or shortness of breath at this time. Patient's presentation and symptomatology creates low suspicion for ACS, PE, pneumothorax, pericarditis, dissection, respiratory compromise, severe dehydration, sepsis, meningitis, or other systemic emergent condition at this time. Patient is aware that this condition can change from initial presentation and she needs to monitor symptoms closely and seek medical attention for any acute changes. Lovenox 80 given Subc. Recommend conservative measures for symptoms. Recheck tomorrow in the ED. Return to the ED with any worsening/concerning symptoms otherwise as reviewed in discharge. Patient is in agreement. - Vital Signs Vital signs: Temp Pulse Resp BP Pulse Ox 97.8 F 60 14 130/56 H 100 05/28/18 12:53 05/28/18 12:53 05/28/18 15:01 05/28/18 15:01 05/28/18 15:01 - Laboratory Result Diagrams: 05/28/18 13:49 05/28/18 13:49 Laboratory results interpreted by me: 05/28/18 05/28/18 05/28/18 13:49 13:49 13:49 Plt Count 124 L D-Dimer BUN 36 H Creatinine 1.32 H Est GFR ( Amer) 46 L Est GFR (Non-Af Amer) 38 L Total Bilirubin 1.5 H Alkaline Phosphatase 37 L Total Protein 8.3 H Urine Ascorbic Acid 40 H 05/28/18 16:35 Plt Count D-Dimer 3.56 H BUN Creatinine Est GFR ( Amer) Est GFR (Non-Af Amer) Total Bilirubin Alkaline Phosphatase Total Protein Urine Ascorbic Acid Discharge - Discharge Clinical Impression: Pleuritic chest pain Condition: Stable Disposition: HOME, SELF-CARE Additional Instructions: You are to have a reevaluation tomorrow anytime after 1:30 PM so we can obtain a CTA of your chest to further evaluate for possible blood clot in your lung. Do not hesitate to return at any other time for any worsening or concerning symptoms otherwise. Forms: Elevated Blood Pressure Referrals: DIXIE ORONA MD [Primary Care Provider] - 05/30/18
[2018-05-28 17:57] LABS: PROTHROMBIN TIME 14.8 SEC (11.4-15.4)
[2018-05-28] MEDS ORDERED: ENOXAPARIN SODIUM INJ 80 MG/0.8 ML DISP.SYRIN SUBCUT SCH (18:00)
[2018-05-28 18:24] VITALS: BP 151/67
--- NOTE | 2018-05-28 21:02 | EKG REPORT ---
SEVERITY:- ABNORMAL ECG - ATRIAL-PACED COMPLEXES FIRST DEGREE AV BLOCK INCOMPLETE RBBB AND LAFB LEFT VENTRICULAR HYPERTROPHY : Confirmed by: Su Guerra MD 28-May-2018 21:02:36
== END 2018-05-28 18:23 | disposition home or self-care (01) ==
LOC: ER 12:39
DX: R07.81 Pleurodynia (principal); R10.30 Lower abdominal pain, unspecified; I10 Essential (primary) hypertension; E11.9 Type 2 diabetes mellitus without complications; E66.9 Obesity, unspecified; Z95.2 Presence of prosthetic heart valve; Z87.891 Personal history of nicotine dependence; Z88.5 Allergy status to narcotic agent; Z88.3 Allergy status to other anti-infective agents; Z88.8 Allergy status to other drugs, medicaments and biological substances; Z88.2 Allergy status to sulfonamides
CPT/HCPCS: 93005; 99285; 96372; 96360; 96361; 36415; 87086; 85025; 85610; 85730; 80053; 81001; 84484; 85379; 83880; 71046; 74176; 93010; J7030; J1650

== ENCOUNTER 2018-05-29 14:33 | Emergency (ER) | payer MEDICARE ==
--- NOTE | 2018-05-29 15:21 | ER Document Report ---
ED Medical Screen (RME) - General Chief Complaint: Shortness Of Breath Stated Complaint: SHORTNESS OF BREATH Time Seen by Provider: 05/29/18 15:20 Primary Care Provider: DIXIE ORONA MD [Primary Care Provider] - Follow up as needed Mode of Arrival: Ambulatory Information source: Patient Notes: Patient presents complaining of shortness of breath with lateral rib pain for the past 9 days. Patient does report occasional cough. Patient denies any fever. Patient states she is here to have a CTA performed. I have greeted and performed a rapid initial assessment of this patient. A comprehensive ED assessment and evaluation of the patient, analysis of test results and completion of the medical decision making process will be conducted by additional ED providers. TRAVEL OUTSIDE OF THE [place] IN LAST 30 DAYS: No - Related Data Allergies/Adverse Reactions: fentanyl Allergy (Verified 05/29/18 14:36) fluconazole [From Diflucan] Allergy (Verified 05/29/18 14:36) Hives mirabegron [From Myrbetriq] Allergy (Verified 05/29/18 14:36) Swelling of tongue morphine [From Avinza] Allergy (Verified 05/29/18 14:36) oxcarbazepine [From Trileptal] Allergy (Verified 05/29/18 14:36) simvastatin [From Zocor] Allergy (Verified 05/29/18 14:36) Gpdcpsq-Rlr-Izk Reductase Inhibitor Allergy (Verified 05/29/18 14:36) Sulfa (Sulfonamide Antibiotics) Allergy (Verified 05/29/18 14:36) Past Medical History - Social History Chew tobacco use (# tins/day): No Frequency of alcohol use: None Drug Abuse: None - Past Medical History Cardiac Medical History: Reports: Hx Hypercholesterolemia, Hx Hypertension Denies: Hx Atrial Fibrillation Endocrine Medical History: Reports: Hx Diabetes Mellitus Type 2 Renal/ Medical History: Denies: Hx Peritoneal Dialysis Past Surgical History: Reports: Other - Replacement of aortic valve twice - Immunizations History of Influenza Vaccine for 11/2016 - 04/2017 Season: Yes Physical Exam - Vital signs Vitals: Temp Pulse Resp BP Pulse Ox 97.5 F 59 L 16 128/57 H 97 05/29/18 14:42 05/29/18 14:42 05/29/18 14:42 05/29/18 14:42 05/29/18 14:42 - Respiratory Respiratory status: No respiratory distress Chest status: Pain with cough Breath sounds: Normal Course - Vital Signs Vital signs: Temp Pulse Resp BP Pulse Ox 97.5 F 59 L 16 128/57 H 97 05/29/18 14:42 05/29/18 14:42 05/29/18 14:42 05/29/18 14:42 05/29/18 14:42 Doctor's Discharge - Discharge Referrals: DIXIE ORONA MD [Primary Care Provider] - Follow up as needed
[2018-05-29 15:49] LABS: ABSOLUTE EOSINOPHILS # (AUTO) 0.2 10^3/uL (0.0-0.6); ABSOLUTE LYMPHOCYTES (AUTO) 0.9 10^3/uL (0.5-4.7); ABSOLUTE MONOCYTES (AUTO) 0.4 10^3/uL (0.1-1.4); ABSOLUTE NEUT (AUTO) 4.6 10^3/uL (1.7-8.2); BASOPHILS % (AUTO) 0.7 % (0-2); EOSINOPHILS % (AUTO) 3.3 % (0-6); HEMATOCRIT 36.5 % (36.0-47.0); HEMOGLOBIN 12.8 g/dL (12.0-15.5); MEAN CORPUSCULAR HEMOGLOBIN 31.8 pg (27.0-33.4); MEAN CORPUSCULAR VOLUME 91 fl (80-97); MONOCYTES % (AUTO) 7.1 % (3-13); PLATELET COUNT 110 10^3/uL (150-450); RED BLOOD COUNT 4.02 10^6/uL (3.72-5.28); RED CELL DISTRIBUTION WIDTH 13.6 % (11.5-14.0); SEGMENTED NEUTROPHILS % (AUTO) 73.9 % (42-78); TOTAL CELLS COUNTED % (AUTO) 100 %; WHITE BLOOD COUNT 6.2 10^3/uL (4.0-10.5)
[2018-05-29 16:04] LABS: INTERNATIONAL RATION (INR) 1.04; PROTHROMBIN TIME 14.1 SEC (11.4-15.4)
[2018-05-29 16:11] LABS: ALANINE AMINOTRANSFERASE 25 U/L (9-52); ALBUMIN 4.1 g/dL (3.5-5.0); ALKALINE PHOSPHATASE 34 U/L (38-126); ANION GAP 8 (5-19); ASPARTATE AMINO TRANSFERASE 32 U/L (14-36); BILIRUBIN,DIRECT 0.2 mg/dL (0.0-0.4); BILIRUBIN,TOTAL 1.3 mg/dL (0.2-1.3); BLOOD UREA NITROGEN 32 mg/dL (7-20); CALCIUM 9.4 mg/dL (8.4-10.2); CARBON DIOXIDE 26 mmol/L (22-30); CHLORIDE 106 mmol/L (98-107); GLUCOSE 100 mg/dL (75-110); POTASSIUM 4.2 mmol/L (3.6-5.0); SODIUM 139.8 mmol/L (137-145); TOTAL PROTEIN 7.4 g/dL (6.3-8.2)
--- NOTE | 2018-05-29 17:36 | RADIOLOGY REPORT (SQ) ---
EXAM DESCRIPTION: CTA CHEST COMPLETED DATE/TIME: 05/29/2018 5:15 pm REASON FOR STUDY: pleuritic pain, elevated d-dimer COMPARISON: Two-view chest 05/28/2018 TECHNIQUE: CT angiography scan of the chest performed using helical scanning technique with dynamic intravenous contrast injection. Images reviewed with lung, soft tissue and bone windows. Reconstruc belen coronal and sagittal MPR images reviewed. Additional 3 dimensional post-processing performed to develop Maximal Intensity Projection images (MA P) through the pulmonary arteries and thoracic aorta. Additional 3 dimensional post-processing perfo rmed to develop Maximal Intensity Projection images (MIP) All images stored on PACS. All CT scanners at this facility use dose modulation, iterative reconstruction, and/or weight based d osing when appropriate to reduce radiation dose to as low as reasonably achievable (ALARA). [facility]: Dose Right [facility]: CareDose [facility]: Dose Right [facility]: Teradose 4D [facility]: [place] CONTRAST TYPE AND DOSE: contrast/concentration: Isovue 350.00 mg/ml; Total Contrast Delivered: 74.0 ml; Total Saline Delivered: 80.0 ml Contrast bolus optimized for the pulmonary arteries and thoracic aorta. RENAL FUNCTION: Creatinine 1.2 RADIATION DOSE: CT Rad equipment meets quality standard of care and radiation dose reduction techniq ues were employed. CTDIvol: 17.7 - 49.6 mGy. DLP: 635 mGy-cm. . LIMITATIONS: None. FINDINGS: LUNGS AND PLEURA: No acute infiltrates. No pleural effusion or pneumothorax. There is pulmonary fibrosis around the periphery of both lung bases. Benign coarse dense 2.5 cm calcification at the lateral edge, left major fissure axial image 49. AORTA AND GREAT VESSELS: No thoracic aortic aneurysm or dissection. HEART: No pericardial effusion. Calcified aortic valve. Old sternotomy for CABG PULMONARY ARTERIES: No emboli visualized in the main pulmonary arteries or the segmental branches. HILAR AND MEDIASTINAL STRUCTURES: No identified masses or abnormal nodes. HARDWARE: Left-sided pacemaker UPPER ABDOMEN: Post cholecystectomy. Nodular liver. Small hiatal hernia. THYROID AND OTHER SOFT TISSUES: No masses. No adenopathy. BONES: Acute or early subacute T11 compression deformity, with possible hairline fracture through the anterior half of the vertebral body on coronal reconstruction images 46-50. Less than 50% overall l oss of vertebral body height. Correlate with bone scan. 3D MIPS: Confirm above findings. OTHER: No other significant finding. IMPRESSION: No CT angio evidence of acute pulmonary emboli or thoracic aortic dissection. Acute or early subacute T11 compression deformity. Consider bone scan for followup. Pulmonary fibrosis at both lung bases COMMENT: Quality ID # [id number]: Final reports with documentation of one or more dose reduction techniques (e.g., Automated exposure control, adjustment of the mA and/or kV according to patient size, use of iterative reconstruction technique) TECHNICAL DOCUMENTATION: JOB ID: [id number] [employer]- All Rights Reserved Reading location - IP/workstation name: [email or web address]
--- NOTE | 2018-05-29 17:39 | ER Document Report ---
HPI - HPI Time Seen by Provider: 05/29/18 15:20 Pain Level: 3 Notes: Patient has returned for CTA of her chest (after visit yesterday) for below hpi which is still appropriate today; although, she has had continued improvement in her hoarseness. Patient is an 82-year-old female with a history of pleural effusion, A. fib, aortic valve repair, colon resection, pacemaker, hypertension, diet-controlled diabetes, obesity who presents to the emergency department complaining of bilateral rib pain when she takes deep breaths and pushes on her ribs. This is been ongoing for the past couple weeks, but increasing over the last week. Patient states that she did have a semi-productive cough about a week ago and was given an inhaler to use by her family doctor, but she started losing her voice at that time and family attributed to the inhaler so they stopped using i t. Patient states that she started getting her voice back over the past couple days. She is still eating and drinking without difficulty. She is able to ambulate without any dyspnea on exertion or worsening symptoms. She is urinating normally and having normal bowel movements. No history of CHF, CAD, VT. Denies any prolonged immobilization, distance travel, recent surgery/trauma, personal cancer history, hormone use, smoking, or previous DVT/PE. Denies any headache, fever, neck pain, URI, sore throat, palpitations, syncope, cough, shortness of breath, wheeze, dyspnea, abdominal pain, na usea/vomiting/diarrhea, urinary retention, dysuria, hematuria, back pain, or rash. - ROS Systems Reviewed and Negative: Yes All other systems reviewed and negative Past Medical History - General Information source: Patient - Social History Smoking Status: Never Smoker Chew tobacco use (# tins/day): No Frequency of alcohol use: None Drug Abuse: None Family History: Reviewed & Not Pertinent Patient has suicidal ideation: No Patient has homicidal ideation: No - Past Medical History Cardiac Medical History: Reports: Hx Hypercholesterolemia, Hx Hypertension Denies: Hx Atrial Fibrillation Endocrine Medical History: Reports: Hx Diabetes Mellitus Type 2 Renal/ Medical History: Denies: Hx Peritoneal Dialysis Past Surgical History: Reports: Other - Replacement of aortic valve twice Vertical Provider Document - CONSTITUTIONAL Agree With Documented VS: Yes Notes: PHYSICAL EXAMINATION: GENERAL: Well-appearing, well-nourished and in no acute distress. HEAD: Atraumatic, normocephalic. EYES: Pupils equal round and reactive to light, extraocular movements intact, sclera anicteric, conjunctiva are normal. ENT: Nares patent and without discharge. oropharynx clear without exudates. No tonsilar hypertrophy or erythema. Moist mucous membranes. NECK: Normal range of motion, supple without lymphadenopathy Chest: + reproducible tenderness to palpation of the ribs laterally and bilater ally, reproduces pain described. LUNGS: Breath sounds clear to auscultation bilaterally and equal. No wheezes rales or rhonchi. HEART: Regular rate and rhythm without murmurs, rubs, gallops. Musculoskeletal: FROM to passive/active. Strength 5+/5. Dante neg. No asymmetry to LE's. Extremities: No cyanosis, clubbing, or edema b/l. Peripheral pulses 2+. Capillary refill less than 3 seconds. NEUROLOGICAL: Normal speech, normal gait. PSYCH: Normal mood, normal affect. SKIN: Warm, Dry, normal turgor, no rashes or lesions noted. - INFECTION CONTROL TRAVEL OUTSIDE OF THE [place] IN LAST 30 DAYS: No Course - Re-evaluation Re-evalutation: 05/29/18 17:[address] Cunningham who is in agreement with dispo/plan: Patient is an afebrile, well-hydrated 82-year-old female who presents to the ED with pleuritic chest pain, unspecified. Vitals are acceptable without any significant tachycardia, tachypnea, or hypoxia. PE is otherwise unremarkable aside from the reproducible lateral rib/chest wall tenderness. Patient is nontoxic-appearing and is tolerating p.o. without any difficulties. CBC, CMP, EKG/cardiac enzymes, CTA unremarkable. Pt has now had 3 troponins over the cou rse of 24 hours that were negative. Pt's creatinine and GFR improved compared to yesterday. Patient does not have any sternal chest pain, dyspnea, or shortness of breath at this time. Patient's presentation and symptomatology creates low suspicion for ACS, PE, pneumothorax, pericarditis, dissection, respiratory compromise, severe dehydration, sepsis, meningitis, or other systemic emergent condition at this time. Patient is aware that this condition can change from initial presentation and she needs to monitor symptoms closely and seek medical attention for any acute changes. Recommend conservative measures for symptoms. Recheck with your PCM in 2-3 days. Schedule an appointment with cardiology. Return to the ED with any worsening/concerning symptoms otherwise as reviewed in discharge. Patient is in agreement. - Vital Signs Vital signs: Temp Pulse Resp BP Pulse Ox 97.5 F 59 L 18 151/92 H 100 05/29/18 14:42 05/29/18 14:42 05/29/18 16:00 05/29/18 15:56 05/29/18 16:00 - Laboratory Result Diagrams: 05/29/18 15:35 05/29/18 15:35 Laboratory results interpreted by me: 05/29/18 05/29/18 15:35 15:35 Plt Count 110 L BUN 32 H Est GFR ( Amer) 52 L Est GFR (Non-Af Amer) 43 L Alkaline Phosphatase 34 L Discharge - Discharge Clinical Impression: Pleuritic chest pain Condition: Stable Disposition: HOME, SELF-CARE Instructions: Chest Pain of Unclear Cause ([facility]) Additional Instructions: Maintain adequate fluid and food intake Take home medications as directed healthy diet Monitor blood pressure daily and keep a log Monitor symptoms for any acute changes Recheck with your PCM in 2-3 days Consider a follow-up with cardiology Return to the ED with any worsening symptoms and/or development of fever, headache, chest pain, palpitations, syncope, shortness of breath, trouble breathing, abdominal pain, n/v/d, blood in stool/urine, loss of control of bowel/bladder, urinary retention, muscle weakness/paralysis, numbness/tingling, or other worsening symptoms that are concerning to you. Forms: Elevated Blood Pressure Referrals: DIXIE ORONA MD [Primary Care Provider] - 05/31/18 JOHNY JONES MD [ACTIVE STAFF] - Follow up as needed
[2018-05-29 18:06] VITALS: BP 135/49
== END 2018-05-29 18:06 | disposition home or self-care (01) ==
LOC: ER 14:33
DX: R07.81 Pleurodynia (principal); I48.91 Unspecified atrial fibrillation; I10 Essential (primary) hypertension; E78.00 Pure hypercholesterolemia, unspecified; E11.9 Type 2 diabetes mellitus without complications; Z95.4 Presence of other heart-valve replacement; Z95.0 Presence of cardiac pacemaker
CPT/HCPCS: 36415; 71275; 80053; 84484; 85025; 85610; 99285

== ENCOUNTER 2018-10-26 23:56 | Observation (INO) | payer MEDICARE ==
--- NOTE | 2018-10-27 00:28 | ER Document Report ---
ED Neuro Symptoms/Deficit - General Chief Complaint: Numbness of Arm Stated Complaint: ARM NUMBNESS Time Seen by Provider: 10/27/18 00:28 Primary Care Provider: DIXIE ORONA MD [Primary Care Provider] - Follow up as needed Mode of Arrival: Stretcher Information source: Patient, Relative Notes: HISTORY OF PRESENT ILLNESS: Patient is a 82-year-old female with a past medical history of hypertension, hyperlipidemia, and diabetes who presents with right-sided numbness and weakness now resolved. Patient reports that she awoke from sleep approximately 30 min utes to 1 hour prior to arrival, reported that she could not feel her entire right side, attempted to get up but could not bear weight on her right leg due to weakness. This episode lasted for approximately 20 minutes and had resolved by the time EMS arrived. Currently, the patient denies any symptoms. No previous history of similar symptoms. Location: Right-sided Onset: 1 hour prior to arrival Provocation: Unknown Quality: Numbness, weakness Radiation: None Severity: Severe Timing: Resolved History of headaches: None Recent head injury: None Vision changes: None Trouble walking: Yes Associated symptoms: No fevers or chills, no cough congestion, no confusion/disorientation, no vision changes, no aphasia REVIEW OF SYSTEMS: CONSTITUTIONAL : Denies fever or chills, no sweats. Denies recent illness. EENT: Denies eye, ear, throat, or mouth pain or symptoms. Denies nasal or sinus congestion. CARDIOVASCULAR: Denies chest pain. RESPIRATORY: Denies cough, cold, or chest congestion. Denies shortness of breath, difficulty breathing, or wheezing. GASTROINTESTINAL: Denies abdominal pain. Denies nausea, vomiting, or diarrhea. Denies constipation. GENITOURINARY: Denies difficulty urinating, painful urination, burning, frequency, or blood in urine. MUSCULOSKELETAL: Denies body aches. Denies neck or back pain or joint pain or swelling. SKIN: Denies rash or skin lesions. HEMATOLOGIC : Denies easy bruising or bleeding. LYMPHATIC: Denies swollen, enlarged glands. NEUROLOGICAL: Positive for right-sided weakness/numbness now resolved. Denies headaches. Denies altered mental status or loss of consciousness. Denies sensory or motor loss. PSYCHIATRIC: Denies anxiety or stress or depression. All other systems reviewed and negative. PHYSICAL EXAMINATION: GENERAL: Well-appearing, well-nourished and in no acute distress. HEAD: Atraumatic, normocephalic. No scalp deformity, depression, or crepitance. EYES: Pupils are 3 mm and equal/round/reactive to light, extraocular movements intact, sclera anicteric, conjunctiva are normal. ENT: Nares patent bilaterally, oropharynx clear without exudates or palatal petechia. Moist mucous membranes. No tonsil hypertrophy. NECK: Normal range of motion, supple without lymphadenopathy. LUNGS: Breath sounds present, equal, and clear to auscultation bilaterally. No wheezes, rales, or rhonchi. HEART: Regular rate and rhythm without murmurs, rubs, or gallops. 2+ peripheral pulses. Normal capillary refill. ABDOMEN: Soft, nontender, nondistended. Normoactive bowel sounds. No guarding, no rebound. No masses appreciated. BACK: Normal contour, no midline tenderness. Rectal exam deferred. GENITAL/PELVC: Deferred. EXTREMITIES: Normal range of motion, no pitting or edema. No cyanosis. NEUROLOGICAL: No focal neurological deficits. Cranial nerves III-XII grossly intact. Moves all extremities spontaneously and on command. PSYCH: Normal mood, normal affect. No suicidal thoughts/ideations. No homicidal thoughts/ideations. No hallucinations. SKIN: Warm, dry, normal turgor, no rashes or lesions noted. ASSESSMENT AND PLAN: This patient is an 82-year-old female who presents with right-sided weakness now resolved, concerning for transient ischemic attack. 1. Will obtain labs, urine, cardiac enzymes, CT head, and admit to the hospital. 2. Will observe. TRAVEL OUTSIDE OF THE [place] IN LAST 30 DAYS: No - HPI Patient complains to provider of: Weakness Onset: Just prior to arrival Awoke with symptoms: Yes Symptoms are: No: Constant, Intermittent episodes, Worse/persistent, Noted on awakening Duration: Better, Gone now Quality of pain: No pain Severity: None Pain Level: Denies Loss of consciousness: No loss of consciousness Was STROKE ALERT Called: No Baseline Cognitive: Alert, oriented X 3 Baseline Gait: Uses a cane/walker Alert To: Name/Voice Patient Orientation: Person Character of altered mental status: Unchanged from baseline Vision problem/glaucoma: No Associated symptoms: None Similar symptoms previously: No Recently seen / treated by doctor: No - Related Data Allergies/Adverse Reactions: fentanyl Allergy (Verified 05/29/18 14:36) fluconazole [From Diflucan] Allergy (Verified 05/29/18 14:36) Hives mirabegron [From Myrbetriq] Allergy (Verified 05/29/18 14:36) Swelling of tongue morphine [From Avinza] Allergy (Verified 05/29/18 14:36) oxcarbazepine [From Trileptal] Allergy (Verified 05/29/18 14:36) simvastatin [From Zocor] Allergy (Verified 05/29/18 14:36) Wmwzwze-Ovx-Fuo Reductase Inhibitor Allergy (Verified 05/29/18 14:36) Sulfa (Sulfonamide Antibiotics) Allergy (Verified 05/29/18 14:36) Past Medical History - General Information source: Patient, Relative - Social History Smoking Status: Never Smoker Chew tobacco use (# tins/day): No Frequency of alcohol use: None Drug Abuse: None Lives with: Family Family History: Reviewed & Not Pertinent Patient has suicidal ideation: No Patient has homicidal ideation: No - Past Medical History Cardiac Medical History: Reports: Hx Hypercholesterolemia, Hx Hypertension Denies: Hx Atrial Fibrillation Pulmonary Medical History: Reports: None EENT Medical History: Reports: None Neurological Medical History: Reports: None Endocrine Medical History: Reports: Hx Diabetes Mellitus Type 2 Renal/ Medical History: Reports: None. Denies: Hx Peritoneal Dialysis Malignancy Medical History: Reports: None GI Medical History: Reports: None Musculoskeletal Medical History: Reports None Skin Medical History: Reports None Psychiatric Medical History: Reports: None Traumatic Medical History: Reports: None Infectious Medical History: Reports: None Past Surgical History: Reports: Other - Replacement of aortic valve twice - Immunizations Immunizations up to date: Yes Hx Diphtheria, Pertussis, Tetanus Vaccination: Yes Review of Systems - Review of Systems Constitutional: No symptoms reported EENT: No symptoms reported Cardiovascular: No symptoms reported Respiratory: No symptoms reported Gastrointestinal: No symptoms reported Genitourinary: No symptoms reported Female Genitourinary: No symptoms reported Musculoskeletal: No symptoms reported Skin: No symptoms reported Hematologic/Lymphatic: No symptoms reported Neurological/Psychological: See HPI, Weakness, Numbness -: Yes All other systems reviewed and negative Physical Exam - Vital signs Vitals: Resp Pulse Ox 14 96 10/26/18 23:59 10/26/18 23:59 Interpretation: Normal Course - Re-evaluation Re-evalutation: 10/27/18 05:35 CT head is negative. Labs are otherwise unremarkable. Patient is admitted to the hospital. - Vital Signs Vital signs: Temp Pulse Resp BP Pulse Ox 60 16 127/68 H 98 10/27/18 00:07 10/27/18 05:02 10/27/18 05:02 10/27/18 05:02 - Laboratory Result Diagrams: 10/27/18 00:11 10/27/18 00:11 Laboratory results interpreted by me: 10/27/18 10/27/18 10/27/18 00:11 00:11 00:11 RDW 14.3 H Plt Count 115 L APTT 58.1 H BUN 25 H Creatinine 1.49 H Est GFR ( Amer) 40 L Est GFR (MDRD) Non-Af 33 L Glucose 119 H Urine Ascorbic Acid 10/27/18 04:14 RDW Plt Count APTT BUN Creatinine Est GFR ( Amer) Est GFR (MDRD) Non-Af Glucose Urine Ascorbic Acid 40 H - Diagnostic Test Radiology reviewed: Image reviewed, Reports reviewed - EKG Interpretation by Me EKG shows normal: Sinus rhythm Rate: Normal Rhythm: NSR Mullins/QRS: No: Right axis deviation, Left axis deviation, RBBB, LBBB, IVCD, LAHB /LAFB, LPHB/LPFB, Bifasicular block Voltage: No: Increased voltage, Consistant with LVH, Decreased voltage, Throughout, Limb leads P Waves: No: LUCILA, LAE, Absent, AV Dissociation, Other Heart block present: No: 1st Degree, Mobitz 1, Mobitz 2, CHB (3rd degree block) When compared to previous EKG there are: No significant change - Consults Dr. Martinez Time consulted: 05:15 - will admit Consulted provider: will come to ER Discharge - Discharge Clinical Impression: Transient ischemic attack Condition: Stable Disposition: ADMITTED INPATIENT Admitting Provider: Michelle (Hospitalist) Referrals: DIXIE ORONA MD [Primary Care Provider] - Follow up as needed
[2018-10-27 02:37] LABS: ABSOLUTE BASOPHILS # (AUTO) 0.1 10^3/uL (0.0-0.2); ABSOLUTE EOSINOPHILS # (AUTO) 0.2 10^3/uL (0.0-0.6); ABSOLUTE LYMPHOCYTES (AUTO) 1.2 10^3/uL (0.5-4.7); ABSOLUTE MONOCYTES (AUTO) 0.5 10^3/uL (0.1-1.4); ABSOLUTE NEUT (AUTO) 3.9 10^3/uL (1.7-8.2); BASOPHILS % (AUTO) 1.1 % (0-2); EOSINOPHILS % (AUTO) 3.3 % (0-6); HEMATOCRIT 42.4 % (36.0-47.0); HEMOGLOBIN 14.5 g/dL (12.0-15.5); MEAN CORPUSCULAR HEMOGLOBIN 30.9 pg (27.0-33.4); MEAN CORPUSCULAR HGB CONC 34.3 g/dL (32.0-36.0); MEAN CORPUSCULAR VOLUME 90 fl (80-97); MONOCYTES % (AUTO) 8.6 % (3-13); PLATELET COUNT 115 10^3/uL (150-450); RED BLOOD COUNT 4.71 10^6/uL (3.72-5.28); RED CELL DISTRIBUTION WIDTH 14.3 % (11.5-14.0); TOTAL CELLS COUNTED % (AUTO) 100 %; WHITE BLOOD COUNT 5.9 10^3/uL (4.0-10.5)
[2018-10-27 02:40] LABS: ALBUMIN 4.3 g/dL (3.5-5.0); ALKALINE PHOSPHATASE 44 U/L (38-126); ANION GAP 7 (5-19); ASPARTATE AMINO TRANSFERASE 29 U/L (14-36); BILIRUBIN,DIRECT 0.2 mg/dL (0.0-0.4); BLOOD UREA NITROGEN 25 mg/dL (7-20); CALCIUM 9.7 mg/dL (8.4-10.2); CARBON DIOXIDE 28 mmol/L (22-30); CHLORIDE 102 mmol/L (98-107); GLUCOSE 119 mg/dL (75-110); POTASSIUM 4.2 mmol/L (3.6-5.0); TOTAL PROTEIN 7.7 g/dL (6.3-8.2)
[2018-10-27 02:45] LABS: INTERNATIONAL RATION (INR) 1.14; PROTHROMBIN TIME 14.7 SEC (11.4-15.4)
[2018-10-27 02:46] LABS: PARTIAL THROMBOPLASTIN TIME 58.1 SEC (23.5-35.8)
--- NOTE | 2018-10-27 03:46 | RADIOLOGY REPORT (SQ) ---
CLINICAL HISTORY: Weakness COMPARISON: None. TECHNIQUE: CT HEAD WITHOUT IV CONTRAST on 10/27/2018 2:02 AM CDT This exam was performed according to our departmental dose-optimization program, which includes automated exposure control, adjustment of the mA and/or kV according to patient size and/or use of iterative reconstruction technique. FINDINGS: There is no acute hemorrhage, mass effect or midline shift. Guan-white differentiation is preserved. There is no hydrocephalus. There is no significant volume loss for age. There are mild patchy hypodensities within the periventricular and subcortical white matter, consistent with microangiopathic ischemic changes. The calvarium is intact. Orbits and globes are unremarkable. The paranasal sinuses are clear. Mastoid air cells are clear. IMPRESSION: No acute intracranial findings.
[2018-10-27 04:29] LABS: APPEARANCE,URINE CLEAR; BILIRUBIN,URINE NEGATIVE (NEGATIVE); COLOR,URINE YELLOW; GLUCOSE, URINE NEGATIVE (NEGATIVE); KETONES,URINE NEGATIVE (NEGATIVE); LEUKOCYTE ESTERASE,URINE NEGATIVE (NEGATIVE); NITRITE,URINE NEGATIVE (NEGATIVE); PROTEIN,URINE NEGATIVE (NEGATIVE); URINE SPECIFIC GRAVITY 1.008; UROBILINOGEN,URINE NEGATIVE mg/dL (<2.0)
[2018-10-27 04:48] LABS: URINE AMPHETAMINES SCREEN NEGATIVE; URINE BARBITURATES SCREEN NEGATIVE; URINE BENZODIAZEPINES SCREEN NEGATIVE; URINE COCAINE SCREEN NEGATIVE; URINE MARIJUANA (THC) SCREEN NEGATIVE; URINE METHADONE SCREEN NEGATIVE; URINE PHENCYCLIDINE SCREEN NEGATIVE
--- NOTE | 2018-10-27 06:42 | EKG REPORT ---
SEVERITY:- ABNORMAL ECG - ATRIAL-PACED COMPLEXES FIRST DEGREE AV BLOCK LEFT ANTERIOR FASCICULAR BLOCK LEFT VENTRICULAR HYPERTROPHY : Confirmed by: Mayo Johnson MD 27-Oct-2018 06:41:29
--- NOTE | 2018-10-27 06:42 | EKG REPORT ---
SEVERITY:- ABNORMAL ECG - ATRIAL-PACED COMPLEXES FIRST DEGREE AV BLOCK LEFT ATRIAL ABNORMALITY RBBB AND LAFB LEFT VENTRICULAR HYPERTROPHY : Confirmed by: Mayo Johnson MD 27-Oct-2018 06:41:43
[2018-10-27] MEDS ORDERED: ACETAMINOPHEN 325 MG TABLET PO PRN (10:33)
[2018-10-27] MEDS ORDERED: DOCUSATE SODIUM 100 MG CAPSULE PO PRN (10:33)
[2018-10-27] MEDS ORDERED: ONDANSETRON 4 MG TAB.RAPDIS PO PRN (10:33)
[2018-10-27] MEDS ORDERED: MAGNESIUM HYDROXIDE SUSP 30 ML UDCUP PO PRN (10:33)
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
[2018-10-27] MEDS ORDERED: SPIRONOLACTONE 25 MG TABLET PO SCH (11:00)
[2018-10-27] MEDS: HEPARIN SOD (PORCINE) 5,000 UNIT/ML 1 ML VIAL SUBCUT SCH ×2 (14:46→21:06)
[2018-10-27] MEDS: NORMAL SALINE 1000 ML 1,000 ML IV PRN (21:06)
[2018-10-28 05:58] LABS: ANION GAP 8 (5-19); BLOOD UREA NITROGEN 26 mg/dL (7-20); CALCIUM 9.1 mg/dL (8.4-10.2); CARBON DIOXIDE 26 mmol/L (22-30); CHLORIDE 104 mmol/L (98-107); CHOLESTEROL 220.49 mg/dL (0-200); GLUCOSE 88 mg/dL (75-110); POTASSIUM 5.1 mmol/L (3.6-5.0); TRIGLYCERIDES 151 mg/dL (<150)
[2018-10-28] MEDS ORDERED: LEVOTHYROXINE SODIUM 0.088 MG TABLET PO SCH (06:00)
[2018-10-28 06:09] LABS: DIRECT LDL 145 mg/dL (<100)
[2018-10-28 06:10] LABS: VLDL CHOLESTEROL 30.2 mg/dL (10-31)
[2018-10-28] MEDS: HEPARIN SOD (PORCINE) 5,000 UNIT/ML 1 ML VIAL SUBCUT SCH (06:23)
--- NOTE | 2018-10-28 08:09 | RADIOLOGY REPORT (SQ) ---
EXAM DESCRIPTION: CAROTID DOPPLER COMPLETED DATE/TIME: 10/27/2018 9:09 pm REASON FOR STUDY: tia COMPARISON: None. TECHNIQUE: Grayscale ultrasound, Doppler velocity and spectra, and color Doppler images acquired of the extra-cranial carotid and vertebral arteries. Images stored on PACS. LIMITATIONS: None. FINDINGS: RIGHT CAROTID CCA Velocities: Within normal limits. ICA Velocities Peak systolic 0.94 m/s. End diastolic 0.24 m/s. Proximal ICA/CCA peak systolic ratio 1.3. Spectra normal. No significant plaque. LEFT CAROTID CCA Velocities: Within normal limits. ICA Velocities Peak systolic 0.62 m/s. End diastolic 0.12 m/s. Proximal ICA/CCA peak systolic ratio 0.8. Spectra normal. No significant plaque. VERTEBRAL ARTERIES: Antegrade flow. Normal waveforms. SUBCLAVIAN ARTERIES: No finding. OTHER: No other significant finding. IMPRESSION: NO HEMODYNAMICALLY SIGNIFICANT STENOSIS. COMMENT: Quality ID #[id number]: Velocity criteria are extrapolated from the diameter data as defined by t he Society of Radiologists in Ultrasound Consensus Conference. Radiology 2003: 229; 340-346. TECHNICAL DOCUMENTATION: JOB ID: [id number] [employer]- All Rights Reserved Reading location - IP/workstation name: [email or web address]
[2018-10-28] MEDS: NORMAL SALINE 1000 ML 1,000 ML IV PRN (08:13)
[2018-10-28] MEDS ORDERED: EZETIMIBE 10 MG TABLET PO SCH (10:00)
[2018-10-28] MEDS ORDERED: ASPIRIN 81 MG TABLET, ENT COATED PO SCH (10:00)
[2018-10-28] MEDS ORDERED: METOPROLOL TARTRATE 50 MG TABLET PO SCH (10:00)
[2018-10-28 12:33] VITALS: BP 144/59
--- NOTE | 2018-10-28 14:04 | PDOC DISCHARGE SUMMARY ---
General - Admit/Disc Date/PCP Admission Date/Primary Care Provider: 10/27/18 05:53 DIXIE ORONA MD Discharge Date: 10/28/18 - Discharge Diagnosis (1) Transient ischemic attack Is this a current diagnosis for this admission?: Yes Summary: The patient clearly had a transient ischemic attack. Symptoms are completely resolved. She does have a history of unstable gait requiring a cane. We will utilize home health for ongoing therapy and strengthening at home. (2) Hypothyroidism Is this a current diagnosis for this admission?: Yes Summary: Patient will continue her current dose of levothyroxine as an outpatient (3) Heart block, first degree Is this a current diagnosis for this admission?: Yes Summary: Pacemaker in place. Continued follow-up with cardiology. (4) Hypertension Is this a current diagnosis for this admission?: Yes Summary: Adequate blood pressure control. Continue current medication regimen. (5) Hypercholesteremia Is this a current diagnosis for this admission?: Yes Summary: Continue current regimen. Follow-up lipid studies with primary care provider. (6) Dehydration Is this a current diagnosis for this admission?: Yes Summary: The patient benefited from gentle IV fluids. Encourage adequate hydration as an outpatient. - Additional Information Resuscitation Status: Full Code Discharge Diet: Cardiac Discharge Activity: Activity As Tolerated, Other - Home health with physical therapy. Home Medications: Ezetimibe [Zetia 10 mg Tablet] 10 mg PO DAILY 10/27/18 Levothyroxine Sodium 88 mcg PO Q6AM 10/27/18 Metoprolol Tartrate [Lopressor 50 mg Tablet] 50 mg PO DAILY 10/27/18 Spironolactone [Aldactone 25 mg Tablet] 25 mg PO Q2D 10/27/18 Aspirin [Ecotrin 81 mg EC Tablet] 81 mg PO DAILY tabec 10/28/18 History of Present Illness Patient complains of: TIA with right-sided weakness and dysarthria History of Present Illness: HELGA POWELL is a 82 year old female Hospital Course Hospital Course: Unremarkable. Symptoms resolved prior to admission. Carotid ultrasound studies normal. MRI not obtainable due to pacemaker. Physical Exam Vital Signs: Temp Pulse Resp BP Pulse Ox 97.5 F 63 18 144/59 H 97 10/28/18 10:50 10/28/18 10:50 10/28/18 10:50 10/28/18 10:50 10/28/18 10:50 Intake & Output 10/27/18 10/28/18 10/29/18 06:59 06:59 06:59 Intake Total 1675 Balance 1675 Weight 80 kg 79.6 kg General appearance: PRESENT: no acute distress, cooperative, well-developed. ABSENT: disheveled Head exam: PRESENT: atraumatic, normocephalic Eye exam: PRESENT: conjunctiva pink. ABSENT: scleral icterus Ear exam: PRESENT: normal external ear exam. ABSENT: bleeding, drainage Mouth exam: PRESENT: moist, tongue midline Neck exam: ABSENT: carotid bruit, JVD, lymphadenopathy Respiratory exam: PRESENT: clear to auscultation gaurang, symmetrical, unlabored. ABSENT: rales, rhonchi, tachypnea, wheezes Cardiovascular exam: PRESENT: RRR, +S1, +S2 GI/Abdominal exam: PRESENT: normal bowel sounds, soft. ABSENT: distended, guarding, tenderness Rectal exam: PRESENT: deferred Gentrourinary exam: ABSENT: indwelling catheter Extremities exam: ABSENT: joint swelling, pedal edema, tenderness Musculoskeletal exam: PRESENT: ambulatory, normal inspection Neurological exam: PRESENT: alert, awake, oriented to person, oriented to place, oriented to time, oriented to situation, CN II-XII grossly intact Psychiatric exam: PRESENT: appropriate affect, normal mood. ABSENT: agitated, anxious Focused psych exam: ABSENT: delusional, restlessness Skin exam: PRESENT: dry, normal color, warm. ABSENT: rash Results Laboratory Results: 10/27/18 00:11 10/28/18 05:00 10/28/18 05:00 Sodium 137.6 Potassium 5.1 H Chloride 104 Carbon Dioxide 26 Anion Gap 8 BUN 26 H Creatinine 1.39 H Est GFR ( Amer) 44 L Glucose 88 Calcium 9.1 Magnesium 2.0 Triglycerides 151 H Cholesterol 220.49 H LDL Cholesterol Direct 145 H VLDL Cholesterol 30.2 HDL Cholesterol 37 L 10/27/18 00:11 Troponin I < 0.012 Impressions: Head CT 10/27/18 02:02 IMPRESSION: No acute intracranial findings. Carotid Doppler Study 10/27/18 10:36 IMPRESSION: NO HEMODYNAMICALLY SIGNIFICANT STENOSIS. Qualifiers - * PATIENT BEING DISCHARGED WITH ANY OF THE FOLLOWING DIAGNOSIS: Stroke VTE patient discharged on overlapping Therapy?: Yes Stroke Pt being discharged on Anti-thrombolytic therapy?: Yes Stroke Pt being discharged on Anti-coagulation therapy?: No Reason(s) for not prescribing Anti-coagulation therapy:: Not indicated - Transient ischemic attack. Symptoms completely resolved. Stroke Pt being discharged on Statins?: Yes Acute Heart Failure - Is this a Heart Failure Patient?: No Plan Time Spent: Greater than 30 Minutes
== END 2018-10-28 14:17 | disposition home health service (06) ==
LOC: ER 23:56 → EH 10-27 05:53 → INTOOBSV 10-27 05:53 → 3W 10-27 07:51
PROVIDERS: ADMIT Emergency Medicine; ATTEND Hospitalist
DX: G45.9 Transient cerebral ischemic attack, unspecified (principal); R26.81 Unsteadiness on feet; E03.9 Hypothyroidism, unspecified; I44.0 Atrioventricular block, first degree; I10 Essential (primary) hypertension; E78.00 Pure hypercholesterolemia, unspecified; E86.0 Dehydration; E11.9 Type 2 diabetes mellitus without complications; R20.0 Anesthesia of skin; Z79.899 Other long term (current) drug therapy; Z79.82 Long term (current) use of aspirin; Z95.0 Presence of cardiac pacemaker; Z95.4 Presence of other heart-valve replacement; Z87.891 Personal history of nicotine dependence
CPT/HCPCS: 93005; 99285; 36415 ×2; 83735; 85025; 85610; 85730; 80048; 80053; 81001; 84484; 80307; 83036; 80061; 93880; 70450; 93010; 97116; 97161; G0378 ×2; J1644; A9270 ×5; J3490; J7030 ×2